=== PATIENT | female | born 1945 | race Caucasian/White ===

== ENCOUNTER 2023-07-07 10:20 | Outpatient (CLI) | payer MEDICARE | END 2023-07-07 10:21 | disposition home or self-care (01) | LOC: CSHMAMMO 10:20 | PROVIDERS: ATTEND Family Medicine | DX: Z13.820 Encounter for screening for osteoporosis (principal); M85.89 Other specified disorders of bone density and structure, multiple sites; Z78.0 Asymptomatic menopausal state | CPT/HCPCS: 77080 ==